=== PATIENT | female | born 1960 | race Caucasian/White ===

== ENCOUNTER → 2016-09-05 | Outpatient (CLI) | payer OTHER ==
[~2016-09-05] MED LIST: ABILIFY 15MG TA15 MG PO; ALLEGRA ALLERG180 MG PO; ALLEGRA180 MG PO; AMOXICILLIN 50500 MG PO; AMOXICILLIN875 MG PO; AURALGAN EAR DR15 ML OT; BACTRIM 400 MG-1 TAB PO; CELEXA40 MG PO; CENTRUM SILVER1 TA1 PO; CO Q-1010 M1 PO; COUMADIN 1010 MG/TAB PO; COUMADIN 77.5 MG/TAB PO; COUMADIN PO; DEPLIN; DEPLIN15 MG PO; DEPLIN7.5 MG PO; KEPPRA1000 MG; LAMICTAL 25MG T25 MG; LASIX 20MG TABL20 MG PO; LORTAB 5/500 501 TAB PO; LOVENOX40 MG/0.4 SC; NEXIUM 40MG40 MG PO; NORCO 325 MG-51 TAB PO; ONFI 10MG PO; PAXIL 10MG10 MG PO; PERCOCET 325 MG1 TA2 PO; RESTORIL; RITALIN 20M20 MG/TAB PO; SINGULAIR 110 MG/TAB PO; SYNTHROID0.125 MG/T PO; TOPAMAX50 MG PO; TUSS PO; VENTOLIN0.09 MG IH; VIMPAT100 MG PO; VITAMIN D32000 IU PO; VYTORIN 10 MG-11 TAB PO; WELLBUTRIN 100100 MG PO; XANAX PO; XANAX XR3 MG PO; ZOCOR 20MG20 MG PO; ZOCOR 40MG40 MG PO; ZOLOFT 100MG100 MG PO; ZYRTEC-D 5 MG-11 TER PO; [UNRECOGNIZED DRUG - REMARK]
== END ==
LOC: MC.RAD 08:30
DX: R92.2 Inconclusive mammogram (principal); Z98.890 Other specified postprocedural states

== ENCOUNTER → 2017-10-13 | Outpatient (CLI) | payer OTHER | LOC: MC.RAD 06:55 | DX: Z12.31 Encounter for screening mammogram for malignant neoplasm of breast (principal) ==

== ENCOUNTER → 2018-04-23 | Outpatient (CLI) | payer OTHER | LOC: COL.RAD 10:04 | DX: D68.9 Coagulation defect, unspecified (principal); I26.99 Other pulmonary embolism without acute cor pulmonale; R91.8 Other nonspecific abnormal finding of lung field; R10.32 Left lower quadrant pain; Z86.711 Personal history of pulmonary embolism | CPT/HCPCS: Q9967 ==

== ENCOUNTER → 2018-05-27 | Outpatient (CLI) | payer OTHER | LOC: COL.RAD 07:21 | DX: K59.00 Constipation, unspecified (principal); R10.9 Unspecified abdominal pain; R19.7 Diarrhea, unspecified; R68.81 Early satiety; R11.0 Nausea; Z87.19 Personal history of other diseases of the digestive system | CPT/HCPCS: A9541; J2250; J2795 ==

== ENCOUNTER → 2018-10-18 | Outpatient (CLI) | payer OTHER | LOC: MC.RAD 10:04 | DX: Z12.31 Encounter for screening mammogram for malignant neoplasm of breast (principal) ==

== ENCOUNTER → 2019-08-24 | Outpatient (CLI) | payer OTHER | LOC: BHSO 10:51 | DX: F33.1 Major depressive disorder, recurrent, moderate (principal) ==

== ENCOUNTER → 2019-09-01 | Outpatient (CLI) | payer OTHER | LOC: MC.RAD 10:05 | DX: N60.11 Diffuse cystic mastopathy of right breast (principal); R59.0 Localized enlarged lymph nodes; N60.81 Other benign mammary dysplasias of right breast | CPT/HCPCS: G0279 ==

== ENCOUNTER 2019-09-06 17:07 | Emergency (ER) | payer OTHER ==
[~2019-09-06] VITALS: Ht 165.1 cm; Wt 86.4 kg
[2019-09-06 17:12] VITALS: TEMP 97.9
[2019-09-06 17:42] LABS: BASO % 0.3 % (0.0-2.0); EOS # 0.1 (0.0-0.7); EOS % 0.9 % (0-4.0); GRAN # 5.8 (1.4-6.5); HEMATOCRIT 41.5 % (37.0-47.0); HEMOGLOBIN 13.5 g/dl (12.5-16.0); LYMPH # 2.2 (1.2-3.4); LYMPH % 24.8 % (20.0-51.0); MEAN CELL VOLUME 92 fl (80.0-100.0); MEAN CORPUSCULAR HEMOGLOBIN 30 pg (27.0-31.0); MEAN CORPUSCULAR HGB CONC 33 g/dl (33.0-37.0); MEAN PLATELET VOLUME 9.9 fl (7.4-10.4); MONO # 0.7 (0.1-0.6); MONO % 7.8 % (1.7-9.3); PLATELET COUNT 293 K/mm3 (130-400); RED BLOOD COUNT 4.53 M/mm3 (4.10-5.30); REDCELL DISTRIBUTION WIDTH-CV 13.3 % (11.5-14.5)
[2019-09-06 17:50] LABS: PROTHROMBIN TIME 11.5 SECONDS (9.7-12.8)
[2019-09-06 17:53] LABS: PARTIAL THROMBOPLASTIN TIME 37.2 SECONDS (26.0-37.0)
[2019-09-06 18:02] LABS: ALANINE AMINOTRANSFERASE 31 U/L (4-34); ALBUMIN 4.5 gm/dL (3.5-5.0); ALKALINE PHOSPHATASE 52 U/L (50-136); ANION GAP 16 mmol/L (7-16); AST,SGOT 53 U/L (15-37); BILIRUBIN,TOTAL 0.4 mg/dL (0.0-1.0); BLOOD UREA NITROGEN 12 mg/dL (7-17); CALCIUM 10.5 mg/dL (8.4-10.2); CARBON DIOXIDE 18 mmol/L (22-30); CHLORIDE 104 mmol/L (98-107); CREATININE, serum 0.69 (0.52-1.25); GLUCOSE 111 mg/dL (74-106); POTASSIUM 3.8 mmol/L (3.4-5.0); SODIUM 138 mmol/L (137-145); TOTAL PROTEIN 7.9 gm/dL (6.4-8.2)
[2019-09-06 18:09] LABS: C-REACTIVE PROTEIN < 0.5 mg/dL (0.0-0.9)
[2019-09-06 18:11] LABS: TROPONIN-I < 0.012 ng/mL (0.000-0.035)
[2019-09-06] MEDS ORDERED: BRINTELLIX5 PO (18:20)
[2019-09-06] MEDS ORDERED: TOPAMAX 100MG100 M1 PO (18:21)
[2019-09-06] MEDS ORDERED: XARELTO10 MG PO (18:22)
[2019-09-06] MEDS ORDERED: PROTONIX 40MG T40 MG PO (18:22)
[2019-09-06] MEDS ORDERED: XALATAN EYE DROPS OD (18:23)
[2019-09-06] MEDS ORDERED: B-121000 MCG PO (18:24)
[2019-09-06 18:58] LABS: ARTERIAL BLD GAS O2 SATURATION 97.1 % (92-100); ARTERIAL BLD GAS TCO2 CT 18.2; ARTERIAL BLOOD GAS BASE EXCESS -5.1 (-2-2); ARTERIAL BLOOD GAS HCO3 17.4 meq/L (22-26); ARTERIAL BLOOD GAS PCO2 25.7 mmHg (35-45); ARTERIAL BLOOD GAS PO2 95.4 mmHg (80-100); ARTERIAL BLOOD GAS pH 7.45 (7.35-7.45)
[2019-09-06 19:30] VITALS: BP 115/56; PULSE 92
== END 2019-09-06 19:33 | disposition home or self-care (01) ==
LOC: COL.ER 17:07
PROVIDERS: Family Medicine
DX: R06.02 Shortness of breath (principal); M62.81 Muscle weakness (generalized); F41.9 Anxiety disorder, unspecified; G40.909 Epilepsy, unspecified, not intractable, without status epilepticus; J84.9 Interstitial pulmonary disease, unspecified; Z86.711 Personal history of pulmonary embolism
CPT/HCPCS: J2060; Q9967

== ENCOUNTER → 2019-10-13 | Outpatient (CLI) | payer OTHER ==
[~2019-10-13] MED LIST changes: +B-121000 MCG PO; +BRINTELLIX5 PO; +PROTONIX 40MG T40 MG PO; +TOPAMAX 100MG100 M1 PO; +XALATAN EYE DROPS OD; +XARELTO10 MG PO
== END ==
LOC: BHSO 08:37
DX: F33.1 Major depressive disorder, recurrent, moderate (principal)
CPT/HCPCS: G0463

== ENCOUNTER → 2019-11-08 | Outpatient (CLI) | payer OTHER | LOC: BHSO 08:01 | DX: F33.41 Major depressive disorder, recurrent, in partial remission (principal) | CPT/HCPCS: G0463 ==

== ENCOUNTER → 2020-10-12 | Outpatient (CLI) | payer OTHER | LOC: ZCOL.LAB 08:50 | DX: Z20.822 Contact with and (suspected) exposure to COVID-19 (principal) ==

== ENCOUNTER → 2020-11-24 | Outpatient (CLI) | payer OTHER ==
[2020-11-24 09:57] LABS: BASO # 0.1 (0.0-0.2); BASO % 0.9 % (0.0-2.0); EOS # 0.4 (0.0-0.7); GRAN # 3.1 (1.4-6.5); GRAN % 54.9 % (42.2-75.2); HEMOGLOBIN 11.6 g/dl (12.5-16.0); LYMPH # 1.4 (1.2-3.4); LYMPH % 25.5 % (20.0-51.0); MEAN CELL VOLUME 89 fl (80.0-100.0); MEAN CORPUSCULAR HEMOGLOBIN 30 pg (27.0-31.0); MEAN CORPUSCULAR HGB CONC 33 g/dl (33.0-37.0); MEAN PLATELET VOLUME 10.3 fl (7.4-10.4); MONO # 0.6 (0.1-0.6); MONO % 11.3 % (1.7-9.3); PLATELET COUNT 194 K/mm3 (130-400); RED BLOOD COUNT 3.93 M/mm3 (4.10-5.30); REDCELL DISTRIBUTION WIDTH-CV 12.3 % (11.5-14.5)
[2020-11-24 10:08] LABS: ALBUMIN 3.7 gm/dL (3.5-5.0); BILIRUBIN,TOTAL 0.5 mg/dL (0.0-1.0); CALCIUM 8.6 mg/dL (8.4-10.2); CREATININE, serum 2.49 (0.52-1.25); POTASSIUM 3.7 mmol/L (3.4-5.0); TOTAL PROTEIN 6.3 gm/dL (6.4-8.2)
== END ==
LOC: ZCOL.LAB 09:50
PROVIDERS: Internal Medicine Infectious Disease
DX: G04.2 Bacterial meningoencephalitis and meningomyelitis, not elsewhere classified (principal)

== ENCOUNTER → 2020-12-20 | Outpatient (CLI) | payer MEDICARE, OTHER | LOC: MC.RAD 11-05 11:15 | DX: Z12.31 Encounter for screening mammogram for malignant neoplasm of breast (principal) ==

== ENCOUNTER → 2021-05-17 | Outpatient (CLI) | payer MEDICARE, OTHER | LOC: COL.LAB 08:23 | DX: Z20.822 Contact with and (suspected) exposure to COVID-19 (principal) ==

== ENCOUNTER → 2021-12-02 | Outpatient (CLI) | payer MEDICARE, OTHER | LOC: MC.RAD 07:54 | DX: Z12.31 Encounter for screening mammogram for malignant neoplasm of breast (principal) ==

== ENCOUNTER → 2022-01-22 | Outpatient (CLI) | payer MEDICARE, OTHER | LOC: COL.RAD 07:09 | DX: K76.0 Fatty (change of) liver, not elsewhere classified (principal); K80.20 Calculus of gallbladder without cholecystitis without obstruction ==

== ENCOUNTER 2022-05-12 07:09 | Emergency (ER) | payer MEDICARE, OTHER ==
[~2022-05-12] VITALS: Ht 162.6 cm; Wt 118.2 kg
[~2022-05-12 07:09] MED LIST changes: +CYMBALTA 60MG60 MG PO; +D-MANNOSE; +FOLIC ACID 11 MG/TA1 PO; +IMURAN 50MG TAB50 MG PO; +LEXAPRO20 MG PO; +NEURONTIN100 MG/CAP PO; +PRALUENT P75 MG/1 ML SQ; +PROAIR HFA0.09 MG/AC IH; +VITAMIN C500 MG PO; +XCOPRI100 MG PO; +ZYPREXA2.5 MG PO
[2022-05-12 07:57] LABS: BASO % 0.4 % (0.0-2.0); EOS # 0.2 K/mm3 (0.0-0.7); GRAN # 3.6 K/mm3 (1.4-6.5); GRAN % 62.1 % (42.2-75.2); HEMOGLOBIN 10.3 g/dl (12.5-16.0); LYMPH # 1.3 K/mm3 (1.2-3.4); LYMPH % 22.6 % (20.0-51.0); MEAN CELL VOLUME 94 fl (80.0-100.0); MEAN CORPUSCULAR HEMOGLOBIN 31 pg (27-31); MEAN CORPUSCULAR HGB CONC 33 g/dl (33.0-37.0); MEAN PLATELET VOLUME 9.5 fl (7.4-10.4); MONO # 0.7 K/mm3 (0.1-0.6); MONO % 11.7 % (1.7-9.3); PLATELET COUNT 231 K/mm3 (130-400); RED BLOOD COUNT 3.38 M/mm3 (4.10-5.30); REDCELL DISTRIBUTION WIDTH-CV 13.3 % (11.5-14.5)
[2022-05-12 08:02] LABS: ALANINE AMINOTRANSFERASE 12 U/L (0-55); ALBUMIN 3.4 gm/dL (3.4-4.8); ALKALINE PHOSPHATASE 52 U/L (40-150); ANION GAP 9 mmol/L (7-16); AST,SGOT 16 U/L (5-34); BILIRUBIN,TOTAL 0.2 mg/dL (0.2-1.2); BLOOD UREA NITROGEN 18 mg/dL (10-20); CALCIUM 9.4 mg/dL (8.4-10.2); CARBON DIOXIDE 25 mmol/L (23-31); CHLORIDE 107 mmol/L (98-107); CREATININE, serum 1.33 mg/dL (0.57-1.11); GLUCOSE 104 mg/dL (70-99); HEMATOCRIT 31.6 % (37.0-47.0); SODIUM 141 mmol/L (136-145); TOTAL PROTEIN 6.6 gm/dL (6.2-8.1)
[2022-05-12 08:12] LABS: INR 1.1 (0.8-3.0); PROTHROMBIN TIME 12.3 SECONDS (9.7-12.8)
[2022-05-12 08:14] LABS: TROPONIN-I < 0.010 ng/mL (0.00-0.033)
[2022-05-12 08:15] LABS: PARTIAL THROMBOPLASTIN TIME 38.1 SECONDS (26.0-37.0)
[2022-05-12 10:35] VITALS: BP 103/82; PULSE 76; TEMP 979
== END 2022-05-12 10:35 | disposition home or self-care (01) ==
LOC: COL.ER 07:09
PROVIDERS: Emergency Medicine
DX: M79.604 Pain in right leg (principal); R06.00 Dyspnea, unspecified; R60.0 Localized edema; I26.99 Other pulmonary embolism without acute cor pulmonale; Z79.01 Long term (current) use of anticoagulants
CPT/HCPCS: Q9967

== ENCOUNTER 2023-09-08 09:11 | Emergency (ER) | payer MEDICARE, OTHER ==
[~2023-09-08] VITALS: Ht 162.6 cm; Wt 88.6 kg
[2023-09-08 09:15] VITALS: TEMP 97.8
[2023-09-08] MEDS ORDERED: NS 500 ML IV ONE (10:00)
[2023-09-08 10:19] LABS: BASO % 0.4 % (0.0-2.0); EOS # 0.1 K/mm3 (0.0-0.7); EOS % 1.5 % (0.0-4.0); GRAN # 3.6 K/mm3 (1.4-6.5); GRAN % 75.4 % (42.2-75.2); HEMATOCRIT 42.5 % (37.0-47.0); HEMOGLOBIN 14.2 g/dl (12.5-16.0); LYMPH # 0.7 K/mm3 (1.2-3.4); LYMPH % 14.6 % (20.0-51.0); MEAN CELL VOLUME 96 fl (80.0-100.0); MEAN CORPUSCULAR HEMOGLOBIN 32 pg (27-31); MEAN CORPUSCULAR HGB CONC 33 g/dl (33.0-37.0); MEAN PLATELET VOLUME 9.3 fl (7.4-10.4); MONO # 0.4 K/mm3 (0.1-0.6); MONO % 7.9 % (1.7-9.3); PLATELET COUNT 256 K/mm3 (130-400); RED BLOOD COUNT 4.44 M/mm3 (4.10-5.30)
[2023-09-08 10:56] LABS: ALBUMIN 3.7 g/dL (3.4-4.8); BILIRUBIN,TOTAL 0.4 mg/dL (0.2-1.2); CALCIUM 9.8 mg/dL (8.4-10.2); CREATININE, serum 1.34 mg/dL (0.57-1.11); POTASSIUM 3.3 mEq/L (3.5-4.5); TOTAL PROTEIN 7.4 g/dl (6.2-8.1)
[2023-09-08 12:20] LABS: COLLECTION METHOD CLEAN CATCH
[2023-09-08 12:55] LABS: PH 5.5 (5.0-8.5); URINE APPEARANCE CLEAR (CLEAR/HAZY); URINE BLOOD TRACE (NEGATIVE); URINE COLOR YELLOW (YELLOW); URINE GLUCOSE 2+ (NEGATIVE); URINE KETONE NEGATIVE (NEGATIVE); URINE NITRATE NEGATIVE (NEGATIVE); URINE PROTEIN(semi-quant) NEGATIVE (NEGATIVE); URINE UROBILINOGEN 0.2 E.U/dL (0.2-1.0)
[2023-09-08 12:58] VITALS: BP 120/67; PULSE 80
== END 2023-09-08 13:13 | disposition home or self-care (01) ==
LOC: COL.ER 09:11
PROVIDERS: Personal Emergency Response Attendant
DX: I95.9 Hypotension, unspecified (principal); Z91.040 Latex allergy status; Z79.899 Other long term (current) drug therapy
CPT/HCPCS: J7040

== ENCOUNTER 2023-12-10 11:23 | Emergency (ER) | payer MEDICARE ==
[~2023-12-10] VITALS: Ht 162.6 cm; Wt 84.1 kg
[2023-12-10 11:28] VITALS: TEMP 98.2
[2023-12-10] MEDS ORDERED: NS 500 ML IV ONE (12:00)
[2023-12-10 12:15] LABS: BASO % 0.3 % (0.0-2.0); GRAN # 2.9 K/mm3 (1.4-6.5); HEMATOCRIT 37.4 % (37.0-47.0); HEMOGLOBIN 13.1 g/dl (12.5-16.0); LYMPH # 0.7 K/mm3 (1.2-3.4); LYMPH % 17.4 % (20.0-51.0); MEAN CELL VOLUME 98 fl (80.0-100.0); MEAN CORPUSCULAR HEMOGLOBIN 34 pg (27-31); MEAN CORPUSCULAR HGB CONC 35 g/dl (33.0-37.0); MEAN PLATELET VOLUME 9.1 fl (7.4-10.4); MONO # 0.3 K/mm3 (0.1-0.6); PLATELET COUNT 179 K/mm3 (130-400); RED BLOOD COUNT 3.81 M/mm3 (4.10-5.30)
[2023-12-10 12:17] LABS: INR 1.1 (0.8-3.0); PROTHROMBIN TIME 11.5 SECONDS (9.7-12.8)
[2023-12-10 12:20] LABS: PARTIAL THROMBOPLASTIN TIME 35.1 SECONDS (26.0-37.0)
[2023-12-10 12:50] LABS: ALANINE AMINOTRANSFERASE 35 U/L (0-55); ALBUMIN 3.2 g/dL (3.4-4.8); ALKALINE PHOSPHATASE 63 U/L (40-150); ANION GAP 10 mmol/L (7-16); AST,SGOT 20 U/L (5-34); BILIRUBIN,TOTAL 0.4 mg/dL (0.2-1.2); BLOOD UREA NITROGEN 9 mg/dL (10-20); CALCIUM 9.2 mg/dL (8.4-10.2); CHLORIDE 107 mEq/L (98-107); CREATININE, serum 1.09 mg/dL (0.57-1.11); GLUCOSE 127 mg/dL (70-99); POTASSIUM 3.7 mEq/L (3.5-4.5); SODIUM 140 mEq/L (136-145); TOTAL PROTEIN 6.1 g/dl (6.2-8.1)
[2023-12-10 12:57] LABS: TROPONIN-I < 0.010 ng/mL (0.00-0.033)
[2023-12-10] MEDS ORDERED: Acetaminophen 500 MG TAB PO ONE (13:30)
[2023-12-10] MEDS ORDERED: Cyclobenzaprine 10 MG TAB PO ONE (13:30)
[2023-12-10] MEDS ORDERED: FLEXERIL 1010 MG/TAB PO (13:46)
[2023-12-10 14:26] VITALS: BP 130/76; PULSE 71
== END 2023-12-10 14:45 | disposition home or self-care (01) ==
LOC: COL.ER 11:23
PROVIDERS: Emergency Medicine
DX: S09.90XA Unspecified injury of head, initial encounter (principal); S16.1XXA Strain of muscle, fascia and tendon at neck level, initial encounter; S05.11XA Contusion of eyeball and orbital tissues, right eye, initial encounter; R68.84 Jaw pain; I95.1 Orthostatic hypotension; R73.9 Hyperglycemia, unspecified; Z86.711 Personal history of pulmonary embolism; Z91.040 Latex allergy status; Z79.01 Long term (current) use of anticoagulants; Z79.899 Other long term (current) drug therapy; W18.12XA Fall from or off toilet with subsequent striking against object, initial encounter; Y92.091 Bathroom in other non-institutional residence as the place of occurrence of the external cause
CPT/HCPCS: J7040